=== PATIENT | female | born 1980 | race Caucasian/White ===

== ENCOUNTER → 2019-01-18 | Day surgery (SDC) | payer OTHER ==
--- NOTE | 2019-01-19 11:26 | OP ---
DATE OF OPERATION: 01/18/2019 PREOPERATIVE DIAGNOSIS: Left breast mass, 8 o'clock, 4 cm from the nipple. POSTOPERATIVE DIAGNOSIS: Left breast mass, 8 o'clock, 4 cm from the nipple. PROCEDURE: Left ultrasound-guided core biopsy with clip placement. ANESTHESIA: Local. ATTENDING SURGEON: Ebony Copeland MD ESTIMATED BLOOD LOSS: Minimal. COMPLICATIONS: None. DESCRIPTION OF PROCEDURE: Patient was made aware of the risks and benefits of the procedure and consented. She was placed in supine position. Under sterile conditions with 1% lidocaine for local anesthesia, small musa was made in the skin. Using a 13-gauge suction biopsy device via lateral approach under ultrasound guidance, multiple cores were obtained and submitted to pathology. Likewise, under ultrasound guidance, a bow-tie clip was placed into the biopsy region. Well tolerated by patient. Steri-Strip and sterile bandage were applied. We will contact her with the results. EBONY COPELAND M.D. [id number]
--- NOTE | 2019-01-21 15:01 | PATH ---
Surgical Pathology Report Patient Name: VIDHYA [facility]. Rec. #: [id number] /Age/Gender: 1980 (Age: 38) / F Account: [id number] Location: [facility] Taken: 01/18/2019 Received: 01/18/2019 Reported: 01/21/2019 Physicians: Ebony Copeland M.D. Specimen(s) Received LEFT BREAST 8:00 4 CM FN CORE BIOPSY Clinical History Non-palpable lesion Ultrasound findings: Suspicious Final Diagnosis BREAST, LEFT, 8:00, 4 CM FN, BIOPSY: BENIGN BREAST TISSUE SHOWING FIBROADENOMA. Electronically Signed Celine Lara M.D. Gross Description Received in formalin, labeled "left breast 8:00 4 cm fn core biopsy" are multiple cores of light schaefer and yellow-schaefer soft tissue, having an aggregate are 3.2 x 1.5 x 0.2 cm. Entirely submitted in two cassettes. Time to formalin fixation: < 1 minute Total formalin fixation time:~6 hours
== END | disposition home or self-care (01) ==
LOC: FRADUS-SUR 15:22
PROVIDERS: ATTEND Surgery Surgical Oncology
PROC: 0HBU3ZX Excision of Left Breast, Percutaneous Approach, Diagnostic (ICD-10-PCS; principal; 2019-01-18)
DX: D24.2 Benign neoplasm of left breast (principal); N63.24 Unspecified lump in the left breast, lower inner quadrant
CPT/HCPCS: 19083; 87899; 88305-TC; A4648